=== PATIENT | female | born 1930 | race Caucasian/White ===

== ENCOUNTER → 2019-03-18 | Outpatient (CLI) | payer MEDICARE ==
--- NOTE | 2019-03-18 08:45 | Diagnostic Imaging Report ---
INDICATION: Cough. COMPARISON: None available. FINDINGS: Enlargement of cardiac silhouette is present and likely due to cardiomegaly. No pleural effusion or pneumothorax. Hyperaerated lung volume is noted. No airspace consolidations. Atherosclerotic aorta. IMPRESSION: 1. Cardiac enlargement without acute cardiopulmonary process. Dictated by: Dictated on workstation # [id number]
== END ==
LOC: RAD FS 08:25
PROVIDERS: ATTEND Nurse Practitioner Family
DX: I51.7 Cardiomegaly (principal); R05 Cough
CPT/HCPCS: 71046

== ENCOUNTER → 2019-08-15 | Outpatient (CLI) | payer MEDICARE | LOC: CARD 15:02 | PROVIDERS: ATTEND Nurse Practitioner Family | DX: I08.0 Rheumatic disorders of both mitral and aortic valves (principal); R01.1 Cardiac murmur, unspecified | CPT/HCPCS: 93306 ==

== ENCOUNTER 2020-05-31 13:13 | Observation (INO) | payer MEDICARE ==
[~2020-05-31] VITALS: Ht 160 cm; Wt 41.2 kg
[2020-05-31] VITALS (15 sets, daily range): BP systolic 83–152; BP diastolic 67–100
--- NOTE | 2020-05-31 13:26 | ED GI ---
General Chief Complaint: Abdominal/GI Problems Stated Complaint: INGUINAL HERNIA Source of Information: Patient Exam Limitations: No Limitations History of Present Illness Date Seen by Provider: May 31, 2020 Time Seen by Provider: 13:24 Initial Comments 89-year-old female presents with pain in her right groin. Patient reports she has a known hernia but has never had issues with her before. Patient reports that she has had a lot of issues with that over the last week, Patient reports that this morning shortly after she got up, it really firm and hard and stain bulging out. Patient denies any previous surgeries she does not have any allergies is taking her medications. She has no nausea or vomiting. She last ate a little bit this morning with some coughing and some toast. Patient reports she was sent in her chair leaning back when the pain started. She denies any fevers chills or other systemic complaints Allergies and Home Medications Allergies Coded Allergies: No Known Drug Allergies (Unverified , 05/31/20) Patient Home Medication List Home Medication List Reviewed: Yes Review of Systems Review of Systems Constitutional: No chills, No fever EENTM: No Symptoms Reported Respiratory: No Symptoms Reported; Denies Cough, Denies Shortness of Air Cardiovascular: Denies Chest Pain, Denies Irregular Heart Rate Gastrointestinal: See HPI, Abdominal Pain; Denies Nausea, Denies Vomiting Genitourinary: No Symptoms Reported Musculoskeletal: no symptoms reported Skin: no symptoms reported Psychiatric/Neurological: No Symptoms Reported Endocrine: No Symptoms Reported Past Dkfjmds-Byvnqz-Tccfeb Hx Past Med/Social Hx: Reviewed Nursing Past Med/Soc Hx Patient Social History Recent Foreign Travel: No Contact w/Someone Who Travel: No Physical Exam Vital Signs Vital Signs - First Documented 05/31/20 13:20 Temp 36.4 Pulse 78 Resp 16 B/P (MAP) 169/96 (120) Pulse Ox 97 O2 Delivery Room Air Capillary Refill : Height/Weight/BMI Height: '" Weight: lbs. oz. kg; BMI Method: General Appearance: no apparent distress Respiratory: lungs clear, normal breath sounds Cardiovascular: normal peripheral pulses, regular rate, rhythm Gastrointestinal: No guarding, No rebound; hernia (right inguinal) Extremities: normal range of motion, non-tender Neurologic/Psychiatric: alert, normal mood/affect, oriented x 3 Skin: normal color, warm/dry Lymphatic: no adenopathy Focused Exam Lactate Level 05/31/20 13:39: Lactic Acid Level 1.28 Lactic Acid Level Laboratory Tests Test 05/31/20 13:39 Lactic Acid Level 1.28 MMOL/L (0.50-2.00) Progress/Results/Core Measures Results/Orders Lab Results Laboratory Tests Test 05/31/20 13:28 05/31/20 13:39 Range/Units White Blood Count 10.3 4.3-11.0 10^3/uL Red Blood Count 4.67 4.35-5.85 10^6/uL Hemoglobin 14.3 11.5-16.0 G/DL Hematocrit 42 35-52 % Mean Corpuscular Volume 90 80-99 FL Mean Corpuscular Hemoglobin 31 25-34 PG Mean Corpuscular Hemoglobin Concent 34 32-36 G/DL Red Cell Distribution Width 12.9 10.0-14.5 % Platelet Count 346 130-400 10^3/uL Mean Platelet Volume 9.7 7.4-10.4 FL Neutrophils (%) (Auto) 57 42-75 % Lymphocytes (%) (Auto) 30 12-44 % Monocytes (%) (Auto) 11 0-12 % Eosinophils (%) (Auto) 1 0-10 % Basophils (%) (Auto) 1 0-10 % Neutrophils # (Auto) 5.9 1.8-7.8 X 10^3 Lymphocytes # (Auto) 3.1 1.0-4.0 X 10^3 Monocytes # (Auto) 1.1 H 0.0-1.0 X 10^3 Eosinophils # (Auto) 0.1 0.0-0.3 10^3/uL Basophils # (Auto) 0.1 0.0-0.1 10^3/uL Sodium Level 134 L 135-145 MMOL/L Potassium Level 3.8 3.6-5.0 MMOL/L Chloride Level 99 98-107 MMOL/L Carbon Dioxide Level 22 21-32 MMOL/L Anion Gap 13 5-14 MMOL/L Blood Urea Nitrogen 12 7-18 MG/DL Creatinine 0.51 L 0.60-1.30 MG/DL Estimat Glomerular Filtration Rate > 60 BUN/Creatinine Ratio 24 Glucose Level 110 H 70-105 MG/DL Calcium Level 9.5 8.5-10.1 MG/DL Corrected Calcium 9.5 8.5-10.1 MG/DL Total Bilirubin 0.7 0.1-1.0 MG/DL Aspartate Amino Transf (AST/SGOT) 17 5-34 U/L Alanine Aminotransferase (ALT/SGPT) 7 0-55 U/L Alkaline Phosphatase 95 40-136 U/L Total Protein 7.4 6.4-8.2 GM/DL Albumin 4.0 3.2-4.5 GM/DL Lactic Acid Level 1.28 0.50-2.00 MMOL/L My Orders Orders - DON LEIVA DO Cbc With Automated Diff (05/31/20 13:27) Comprehensive Metabolic Panel (05/31/20 13:27) Lactic Acid Analyzer (05/31/20 13:27) Fentanyl Injection (Sublimaze Injection (05/31/20 13:27) Ondansetron Injection (Zofran Injectio (05/31/20 13:30) Ed Iv/Invasive Line Start (05/31/20 13:27) Medications Given in ED Current Medications Medications Dose Ordered Sig/Esdras Route Start Time Stop Time Status Last Admin Dose Admin Ondansetron HCl 4 mg ONCE ONCE IVP 05/31/20 13:30 05/31/20 13:31 DC 05/31/20 13:33 4 MG Vital Signs/I&O 05/31/20 13:20 Temp 36.4 Pulse 78 Resp 16 B/P (MAP) 169/96 (120) Pulse Ox 97 O2 Delivery Room Air Progress Progress Note : Time: 13:47 Progress Note Attempted hernia reduction following 50 M CDs of fentanyl. The hernia with not reduced instead moved below the groin into the upper part of the right leg. It appears to be in possible incarcerated femoral hernia. Called and discussed with Dr. Tillman who accepted patient. Patient be transferred to [facility] via EMS for possible surgery. Departure Communication (Admissions) Time/Spoke to Admitting Phy: 13:45 Impression Primary Impression: Inguinal hernia, right Disposition: ADMITTED INPATIENT Condition: Stable Admissions Decision to Admit Reason: Admit from ER (General) Decision to Admit/Date: May 31, 2020 Time/Decision to Admit Time: 13:45 Departure-Patient Inst. Referrals: MYRTLE YOUNG MD (PCP/Family) Primary Care Physician DON LEIVA DO May 31, 2020 13:26
[2020-05-31] MEDS ORDERED: fentaNYL INJECTION 100 MCG/2 ML AMP IVP STA (13:27)
[2020-05-31] MEDS ORDERED: ONDANSETRON 4 MG/2 ML (SDV) Z0FRAN IVP ONE (13:30)
[2020-05-31 13:34] LABS: WHITE BLOOD COUNT 10.3 10^3/uL (4.3-11.0)
[2020-05-31 13:35] LABS: BASOPHILS # (AUTO) 0.1 10^3/uL (0.0-0.1); BASOPHILS % (AUTO) 1 % (0-10); EOSINOPHILS # (AUTO) 0.1 10^3/uL (0.0-0.3); EOSINOPHILS % (AUTO) 1 % (0-10); HEMATOCRIT 42 % (35-52); HEMOGLOBIN 14.3 G/DL (11.5-16.0); LYMPHOCYTES # (AUTO) 3.1 X 10^3 (1.0-4.0); LYMPHOCYTES % (AUTO) 30 % (12-44); MEAN CORPUSCULAR HEMOGLOBIN 31 PG (25-34); MEAN CORPUSCULAR HGB CONC 34 G/DL (32-36); MEAN CORPUSCULAR VOLUME 90 FL (80-99); MEAN PLATELET VOLUME 9.7 FL (7.4-10.4); MONOCYTES # (AUTO) 1.1 X 10^3 (0.0-1.0); MONOCYTES % (AUTO) 11 % (0-12); NEUTROPHILS # (AUTO) 5.9 X 10^3 (1.8-7.8); NEUTROPHILS % (AUTO) 57 % (42-75); PLATELET COUNT 346 10^3/uL (130-400)
[2020-05-31 13:53] LABS: ALANINE AMINOTRANSFERASE 7 U/L (0-55); ALKALINE PHOSPHATASE 95 U/L (40-136); BILIRUBIN,TOTAL 0.7 MG/DL (0.1-1.0); BUN/CREATININE RATIO 24; CALCIUM 9.5 MG/DL (8.5-10.1); CARBON DIOXIDE 22 MMOL/L (21-32); CHLORIDE 99 MMOL/L (98-107); CREATININE SERUM 0.51 MG/DL (0.60-1.30); GFR ESTIMATED > 60; GLUCOSE 110 MG/DL (70-105); POTASSIUM 3.8 MMOL/L (3.6-5.0); SODIUM 134 MMOL/L (135-145); TOTAL PROTEIN 7.4 GM/DL (6.4-8.2)
[2020-05-31] MEDS ORDERED: NS IV 1000 ML 1,000 ML ONE (13:59)
[2020-05-31] MEDS ORDERED: NS IV 1000 ML 1,000 ML IV SCH ×2 (14:02→16:30)
--- NOTE | 2020-05-31 15:55 | NUR ---
CATALINA QUIROGA admitted to room 413-1, with an admitting diagnosis of Inguinal Hernia, on 05/31/20 from [facility] via [facility] , accompanied by FRIEND.CATALINA QUIROGA introduced to surroundings, call light, bed controls, phone, TV, temperature control, lights, meal times, smoking policy, visitor policy, side rail policy, bathrooms and showers. Patient Rights given to patient in the handbook. CATALINA QUIROGA verbalizes understanding that [facility] is not responsible for the loss or damage to any personal effects or valuables that are kept in the patients posession during their hospitalization. The following Patient Care Plans were discussed with the PT. Discharge Planning, PAIN, FL VOL DEF, POT FOR FALL, AND HIGH RISK INJURY. CATALINA QUIROGA verbalizes understanding of Interdisciplinary Patient Education. Patient and/or family were informed about the Rapid Response Team and its purpose. CAME TO FLOOR WITH SL IN R FA FROM ER [facility], REPORT WAS CALLED TO THIS RN FROM [facility]Y AT 1421 -- NOTE THT PT CAME PER [facility].
[2020-05-31] MEDS: NS IV 1000 ML 1,000 ML IV SCH ×2 (16:27→21:53)
[2020-05-31] MEDS ORDERED: CATHETER FLUSH 10 ML SYR IV PRN (16:30)
[2020-05-31] MEDS ORDERED: fentaNYL INJECTION 100 MCG/2 ML AMP IV PRN (16:30)
--- NOTE | 2020-05-31 16:56 | History & Physical-Surgical ---
History of Present Illness History of Present Illness Reason for visit/HPI Surgery asked to admit regarding incarcerated Femoral Hernia. HPI per ED: 89-year-old female presents with pain in her right groin. Patient reports she has a known hernia but has never had issues with her before. Patient reports that she has had a lot of issues with that over the last week, Patient reports that this morning shortly after she got up, it really firm and hard and stain bulging out. Patient denies any previous surgeries she does not have any allergies is taking her medications. She has no nausea or vomiting. She last ate a little bit this morning with some coughing and some toast. Patient reports she was sent in her chair leaning back when the pain started. She denies any fevers chills or other systemic complaints When I spoke to pt she complained of bulge and pain in right inguinal region. It started sometime around noon and she rated it 6 out of 10, dull constant with occasional sharp shooting pains. She states it has been "popping out" for 4-5 years, but usually goes back in. It usually occurs when she is straining, today it happened while she was making her bed. Nothing has made it better, pushing on it makes pain worse. Date of Admission May 31, 2020 at 15:51 Time Seen by a Provider: 16:31 I consulted on this patient on 05/31/20 16:51 Attending Physician Kali Tillman DO Admitting Physician Juanita Dash MD Consult Allergies and Home Medications Allergies Coded Allergies: No Known Drug Allergies (Unverified , 05/31/20) Patient Home Medication List Home Medication List Reviewed: Yes Past Dgdwsdu-Iiwmvm-Wldyak Hx Patient Social History Alcohol Use: Denies Use Recreational Drug Use: No Smoking Status: Never a Smoker 2nd Hand Smoke Exposure: No Recent Foreign Travel: No Contact w/Someone Who Travel: No Recent Infectious Disease Expo: No Recent Hopitalizations: No Seasonal Allergies Seasonal Allergies: No Surgeries History of Surgeries: Yes Surgeries: Gallbladder (open) Respiratory History of Respiratory Disorde: No Cardiovascular History of Cardiac Disorders: Yes Cardiac Disorders: Hypertension Neurological History of Neurological Disord: No Genitourinary History of Genitourinary Disor: No Gastrointestinal History of Gastrointestinal Di: Yes (Inguinal hernia) Musculoskeletal History of Musculoskeletal Dis: No Endocrine History of Endocrine Disorders: No Cancer History of Cancer: No Psychosocial History of Psychiatric Problem: No Integumentary History of Skin or Integumenta: No Blood Transfusions History of Blood Disorders: No Family Medical History Significant Family History: Cancer (Breast cancer - Sister), Other Conditions/Hx (younger sibling had polio, she denied any cardiac hx in her family) Review of Systems Constitutional: No chills, No diaphoresis, No malaise EENTM: hearing loss; No blurred vision, No double vision, No mouth pain, No mouth swelling, No epistaxis Respiratory: No cough, No dyspnea on exertion, No hemoptysis, No short of breath Cardiovascular: No chest pain, No edema Gastrointestinal: abdominal pain (RLQ); No jaundice, No nausea, No vomiting Genitourinary: No dysuria, No frequency, No hematuria Musculoskeletal: joint pain, joint swelling, muscle stiffness, other (osteoporosis) Skin: No change in color, No change in hair/nails Psychiatric/Neurological: Denies Anxiety, Denies Depressed, Denies Seizure, Denies Tremors pt denies any hx of abnormal bleeding or bruising Physical Exam Vital Signs Vital Signs - First Documented 05/31/20 13:20 Temp 36.4 Pulse 78 Resp 16 B/P (MAP) 169/96 (120) Pulse Ox 97 O2 Delivery Room Air Capillary Refill : Less Than 3 Seconds Height, Weight, BMI Height: '" Weight: lbs. oz. kg; 16.00 BMI Method: General Appearance: No Apparent Distress, Thin Eyes: Bilateral Eye PERRL, Bilateral Eye EOMI HEENT: Pharynx Normal, Moist Mucous Membranes; No Scleral Icterus (L) Neck: Supple; No Thyromegaly Respiratory: Chest Non Tender, Lungs Clear, Normal Breath Sounds, No Accessory Muscle Use, No Respiratory Distress Cardiovascular: Regular Rate, Rhythm, No Murmur Gastrointestinal: No No Organomegaly, No No Pulsatile Mass; Soft, Hernia (incarcerated inguinal vs femoral) Rectal: Deferred Back: No CVA Tenderness, No Vertebral Tenderness Extremity: No Calf Tenderness, No Pedal Edema Neurologic/Psychiatric: Alert, Oriented x3, Normal Mood/Affect, 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 Norm as Tested Skin: Normal Color, Warm/Dry Lymphatic: No Adenopathy (neck, axilla or groin) Data Review Labs Laboratory Tests 05/31/20 13:28: White Blood Count 10.3, Red Blood Count 4.67, Hemoglobin 14.3, Hematocrit 42, Mean Corpuscular Volume 90, Mean Corpuscular Hemoglobin 31, Mean Corpuscular Hemoglobin Concent 34, Red Cell Distribution Width 12.9, Platelet Count 346, Mean Platelet Volume 9.7, Neutrophils (%) (Auto) 57, Lymphocytes (%) (Auto) 30, Monocytes (%) (Auto) 11, Eosinophils (%) (Auto) 1, Basophils (%) (Auto) 1, Neutrophils # (Auto) 5.9, Lymphocytes # (Auto) 3.1, Monocytes # (Auto) 1.1H, Eosinophils # (Auto) 0.1, Basophils # (Auto) 0.1, Sodium Level 134L, Potassium Level 3.8, Chloride Level 99, Carbon Dioxide Level 22, Anion Gap 13, Blood Urea Nitrogen 12, Creatinine 0.51L, Estimat Glomerular Filtration Rate > 60, BUN/Creatinine Ratio 24, Glucose Level 110H, Calcium Level 9.5, Corrected Calcium 9.5, Total Bilirubin 0.7, Aspartate Amino Transf (AST/SGOT) 17, Alanine Aminotransferase (ALT/SGPT) 7, Alkaline Phosphatase 95, Total Protein 7.4, Albumin 4.0 05/31/20 13:39: Lactic Acid Level 1.28 Assessment/Plan Assessment/Plan Admission Diagonsis Incarcerated Right Femoral Hernia vs Inguinal HTN Admission Status: Observation Assessment/Plan Incarcerated Right Femoral Hernia vs Inguinal HTN Pt has an incarcerated possible strangulated hernia; unsure whether this is a femoral or inguinal hernia. Pt is NPO, IV fluids running, will get pain meds and anti-emetics as needed. Will get consent for Laparoscopic Herniarraphy with mesh placement - robotic assistance. 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 We discussed other risks and complications; not limited to pain, bleeding, infection, scar, damage to bowel and need for further procedure. All questions answered to their satisfaction. Pt will also get IV ABX just prior to OR. KALI TILLMAN DO May 31, 2020 16:56
[2020-05-31] MEDS ORDERED: BUP/EPI 0.5% 1:200,000 (MARCAINE) 10ML VIAL IJ ONE (17:15)
[2020-05-31] MEDS ORDERED: proPOfol 200 MG/20 ML (DIPRIVAN) VIAL IV ONE (17:22)
[2020-05-31] MEDS ORDERED: fentaNYL INJECTION 100 MCG/2 ML AMP ONE (17:22)
[2020-05-31] MEDS ORDERED: LIDOCAINE PF 2% 5 ML (XYLOCAINE) VIAL ONE (17:22)
[2020-05-31] MEDS ORDERED: SEVOFLURANE (ULTANE) 15 ML INHAL SOLN ONE (17:22)
[2020-05-31] MEDS ORDERED: ONDANSETRON 4 MG/2 ML (SDV) Z0FRAN ONE ×2 (17:26→18:58)
[2020-05-31] MEDS ORDERED: ceFAZolin INJECTION 1,000 MG ONE (17:57)
[2020-05-31] MEDS ORDERED: LACTATED RINGERS 1,000 ML IV PRN (18:45)
[2020-05-31] MEDS ORDERED: BSS 15 ML ONE (18:52)
--- NOTE | 2020-05-31 18:53 | NUR ---
NOTE THAT PT TAKEN DOWN FOR PREOP AT 1741 --
[2020-05-31] MEDS ORDERED: LABETALOL HCL 20 MG/4 ML VIAL ONE (18:54)
--- NOTE | 2020-05-31 19:44 | Progress Note-Post Operative ---
Post-Operative Progess Note Surgeon (s)/Hair Cutter (s) Surgeon NAZANIN HA DO Hair Cutter: Alvarez Pre-Operative Diagnosis Incarcerated Femoral vs Inguinal hernia Post-Operative Diagnosis Strangulated Femoral hernia Diaphragmatic hernia Crepitance Procedure & Operative Findings Date of Procedure 05/31/20 Procedure Performed/Findings INDICATION FOR PROCEDURE: The patient is a 89-year-old female, who has an incarcerated right probable femoral hernia vs possibly inguininal hernia. FINDINGS: The patient had a portion strangulated small intestine and omentum in a femoral hernia, also noted a diaphragmatic hernia. Pictures were taken of both. PROCEDURE NOTE: After informed consent was obtained, the patient was brought to the operating room, placed on the operating table in supine position. She was sterilely prepped and draped in normal fashion. Local lidocaine was used to infiltrate the skin above the umbilicus. I made the incision with #11 blade, carried down through the skin into subcutaneous tissue, then deepened down to subcutaneous tissue with Bovie electrocautery down to fascia. Fascia was incised with Bovie electrocautery, bluntly entered into the abdomen, swept a finger around, placed 0 Vicryl [id number] suture and placed an 11 mm trocar port under direct visualization. Created pneumoperitoneum and then placed 2 more ports in normal fashion using local lidocaine, 11 blade for stab incision and used the 8 mm robotic trocar ports watched them come in. While creating the pneumoperitoneum we heard a sound like a burp and then later in the case the [employer] noticed crepitance in the pt's face and neck into her eyelids as well. At this point, then placed the patient in Trendelenburg and docked the robot, had seen some intestine in the right femoral hernia and able to carefully pull this out. The intestine looked mildly ischemic and let it drop into abdomen and then took pictures of the right femoral hernia. At this point, then made an incision approximately 8 cm away from the right femoral hernia defect in the peritoneum and then carefully came down, came across the paramedian ligament as well as about 12 cm across to be able to create our space and then dissected through the peritoneum pushing this down gently trying to stay in the parietal space and then once medial with the paramedian ligament, went into the parietal space and then dissected down towards the pubic tubercle able to visualize the pubic tubercle and then cut take the peritoneum all the way down, able to see the critical view and be able to get 2 cm across the midline to the left side with dissection and then 2 cm posterior to Johnathon's ligament able to parietalize the groove between Johnathon's and iliac vein. Coming across the round ligament and sweeping everything down. She had a relatively large hernia defect, it took a while to get this completely out. Able to visualize the direct hernia space; there was no hernia. There may have been a small indirect inguinal hernia. Reduced the hernia sac and contents; made sure that the posterior lateral dissection, dissected out about 14 cm and at this point, then placed a medium Bard 3D mesh in. It was just about 14 cm with a wide overlap of the hernia defect. Used a 3-0 Vicryl to then suture at the pubic tubercle as well as another one to hold it superiorly with a 3-0 Vicryl and at this point then elected to close the peritoneal defect with a 2-0 V-Loc suture running from the medial aspect to the lateral aspect tying to itself. Pulled out the very large hernia defect and elected to hold this up and tacked this to the top to hold this out of the way. Took pictures with the mesh and then took a picture with the peritoneum closed and looked very good at the end of the case. At this point then placed a bag into the abdomen and removed the hernia contents; also looked around and saw a diaphragmatic hernia, took a picture. This must be why she had crepitance and swelling into her face and eyes. Next, removed all ports under direct visualization, placed the patient supine and then closed the supraumbilical incision, closing the fascia with 0 Vicryl suture previously placed. Copiously irrigated all incisions and then closed the incision with 4-0 undyed Monocryl. Area was cleaned and dried. Dermabond placed as well as Band-Aids. The patient tolerated the procedure. Sponge, instrument and needle count correct at the end of the case. She was then transferred to ICU in stable condition; will most likely remain intubated over night. Dr. Pino assisted in this case helping to make incisions, close incisions, identify anatomy and hold anatomy out of the way. He also passed suture to me. Anesthesia Type GET Estimated Blood Loss Estimated blood loss (mL): less than 15ml Specimens/Packing Specimens Removed hernia contents NAZANIN HA DO May 31, 2020 19:44
[2020-05-31] MEDS ORDERED: PROPOFOL DRIP (ICU) 100 ML IV ONE (20:06)
--- NOTE | 2020-05-31 20:27 | Diagnostic Imaging Report ---
INDICATION: Postop intubation FINDINGS: An ET tube tip projects over the mid thoracic trachea in good alignment. 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 Since the prior, there has been development of extensive subcutaneous emphysema about the chest bilaterally and extending into the bilateral neck. Underlying COPD as well as the extent of overlying soft tissue gas limits sensitivity for detecting pneumothoraces, no appreciable pleural separation or visualized pneumothorax found. No definite pneumomediastinum or pericardial gas. The visualized upper abdomen shows free air presumed on a postsurgical basis given the provided history. The gas may be dissecting from that site. IMPRESSION: 1. Pneumoperitoneum on a postoperative basis may account for the diffuse chest wall and cervical subcutaneous emphysema as no appreciable pneumothorax found. 2. An ET tube is present in the mid thoracic trachea in good alignment. Dictated by: Dictated on workstation # [id number]
[2020-05-31] MEDS ORDERED: PROPOFOL DRIP (ICU) 100 ML IV SCH (20:30)
[2020-05-31] MEDS ORDERED: fentaNYL INJECTION 1,250 MCG in NORMAL SALINE 250 ML INJ SCH (20:30)
--- NOTE | 2020-05-31 20:55 | NUR ---
Received care and report of pt at this time from Joseline Mooney from recovery. See interventions.
[2020-05-31] MEDS ORDERED: NS (IVPB) 100 ML ONE (21:45)
[2020-05-31] MEDS ORDERED: fentaNYL (OMNICELL DRIP KIT ONLY) 250 MCG/5 ML AMP ONE (21:45)
[2020-06-01] VITALS (16 sets, daily range): BP systolic 93–133; BP diastolic 63–88
[2020-06-01 03:31] LABS: BASOPHILS % (AUTO) 0 % (0-10); EOSINOPHILS % (AUTO) 0 % (0-10); HEMATOCRIT 38 % (35-52); HEMOGLOBIN 12.7 G/DL (11.5-16.0); LYMPHOCYTES # (AUTO) 1.8 X 10^3 (1.0-4.0); LYMPHOCYTES % (AUTO) 9 % (12-44); MEAN CORPUSCULAR HEMOGLOBIN 31 PG (25-34); MEAN CORPUSCULAR HGB CONC 33 G/DL (32-36); MEAN CORPUSCULAR VOLUME 92 FL (80-99); MEAN PLATELET VOLUME 10.3 FL (7.4-10.4); MONOCYTES # (AUTO) 2.1 X 10^3 (0.0-1.0); MONOCYTES % (AUTO) 10 % (0-12); NEUTROPHILS # (AUTO) 16.1 X 10^3 (1.8-7.8); NEUTROPHILS % (AUTO) 81 % (42-75); PLATELET COUNT 254 10^3/uL (130-400)
[2020-06-01 03:33] LABS: ABG BASE EXCESS -3.5 MMOL/L (-2.5-2.5); ABG OXYGEN SATURATION 98 % (94-100); ABG PCO2 38 MMHG (35-45); ABG PH 7.36 (7.37-7.43); ABG PO2 98 MMHG (79-93); ABG TCO2 22.3 MMOL/L (21.0-31.0); ALLENS TEST POSITIVE
[2020-06-01 03:34] LABS: INSPIRED O2 21; PATIENT TEMP 36.9; VENTILATOR YES
[2020-06-01 03:47] LABS: CHLORIDE 105 MMOL/L (98-107); POTASSIUM 3.9 MMOL/L (3.6-5.0); SODIUM 135 MMOL/L (135-145)
[2020-06-01 03:48] LABS: CALCIUM 8.4 MG/DL (8.5-10.1)
[2020-06-01 03:49] LABS: GLUCOSE 158 MG/DL (70-105)
[2020-06-01 03:50] LABS: CARBON DIOXIDE 18 MMOL/L (21-32)
[2020-06-01 03:53] LABS: CREATININE SERUM 0.69 MG/DL (0.60-1.30); GFR ESTIMATED > 60
[2020-06-01 03:54] LABS: BUN/CREATININE RATIO 19
[2020-06-01 03:55] LABS: MAGNESIUM 1.9 MG/DL (1.6-2.4)
[2020-06-01 04:39] LABS: ANISOCYTOSIS SLIGHT; BAND NEUTROPHILS 12 %; LYMPHOCYTES % (MANUAL) 7 %; MONOCYTES % (MANUAL) 8 %; NEUTROPHILS % (MANUAL) 73 %; POIKILOCYTOSIS MODERATE
--- NOTE | 2020-06-01 07:54 | NUR ---
0740 PT SITTING UP IN BED FOLLOWING ALL COMMANDS, DR HA NOTIFIED AND ORDERS RECEIVED TO EXTUBATE PT. RT NOTIFIED. PT EXTUBATED AT 0747 AND RESTRAINTS REMOVED. PT PLACED ON 02 AT 2 LITERS PER NC. PT REPOSITIONED IN BED PER COMFORT, FRESH ICE PACK PLACED TO ABDOMEN, PT DENIES ANY NEEDS AND NO C/O OF PAIN NOTED, CALL LIGHT WITHIN REACH WILL CONTINUE TO MONITOR.
--- NOTE | 2020-06-01 07:56 | Physical Therapy Progress Note ---
Therapy Progress Note Patient currently intubated and sedated. PT will continue to monitor patient status and initiate when medically stable and able to actively participate with skilled therapy. MISA ALDRIDGE PT Jun 01, 2020 07:56
--- NOTE | 2020-06-01 08:00 | Occ Therapy Progress Note ---
Therapy Progress Note OT order received, chart reviewed. Pt. currently sedated and on ventilator support. Will continue to monitor. [id number] KRYSTLE BEARDEN OT Jun 01, 2020 08:00
--- NOTE | 2020-06-01 08:44 | Diagnostic Imaging Report ---
INDICATION: Intubation. Comparison is made with prior examination from 05/31/2020. FINDINGS: There is cardiomegaly. There is ectasia of the thoracic aorta. Lungs are clear. There is no pleural effusion or pneumothorax. Endotracheal tube remains in place. Subcutaneous emphysema about the left chest wall bilaterally though this is improved. IMPRESSION: Interval improvement in the subcutaneous emphysema. Cardiomegaly and ectasia of the thoracic aorta No other acute cardiopulmonary abnormality. Dictated by: Dictated on workstation # [id number]
--- NOTE | 2020-06-01 08:53 | Progress Note - Surgery ---
ROYCE AJ MED STUDENT 06/01/20 0853: Subjective Date Seen by a Provider: Jun 01, 2020 Time Seen by a Provider: 08:30 Subjective/Events-last exam Pt was lying quietly in bed. pt asked where she was and where her friend Joseline was. pt denied any pain. pt denied any abdominal tenderness. pt kept asking where she was. pt kept saying that she needed something to drink. pt was grateful for the hernia repair, she expressed that yesterday she knew something was wrong when she had bent down and had pain. Review of Systems General: No Chills; Fatigue Pulmonary: No Dyspnea, No Cough Cardiovascular: No: Chest Pain, Palpitations Gastrointestinal: No: Nausea, Vomiting, Diarrhea, Constipation Musculoskeletal: No: neck pain, leg pain Focused Exam Lactate Level 05/31/20 13:39: Lactic Acid Level 1.28 Respiratory: Chest Non Tender, Lungs Clear, Normal Breath Sounds, No Accessory Muscle Use, No Respiratory Distress Cardiovascular: Regular Rate, Rhythm, No Murmur Peripheral Pulses: 2+ Carotid (R), 2+ Carotid (L); 1+ Dorsalis Pedis (R), 1+ Left Dors-Pedis (L), 1+ Radial Pulses (R), 1+ Radial Pulses (L) Skin: normal color Objective Exam Vital Signs Date Time Temp Pulse Resp B/P (MAP) Pulse Ox O2 Delivery O2 Flow Rate FiO2 06/01/20 07:20 36.6 06/01/20 07:00 95 15 133/80 (97) 93 Nasal Cannula 2.00 06/01/20 06:45 68 14 97 21 06/01/20 06:00 67 14 95/65 (75) 97 Mechanical Ventilator 21.00 06/01/20 05:00 67 99/63 (75) 97 Mechanical Ventilator 21.00 06/01/20 04:00 69 18 100/68 (79) 96 Mechanical Ventilator 21.00 06/01/20 03:37 36.9 06/01/20 03:00 76 13 111/78 (89) 100 Mechanical Ventilator 21.00 06/01/20 02:26 68 14 97 21 06/01/20 02:00 69 13 103/65 (78) 97 Mechanical Ventilator 21.00 06/01/20 01:06 68 15 97 21 06/01/20 01:00 76 14 126/72 (90) 97 Mechanical Ventilator 21.00 06/01/20 01:00 76 06/01/20 00:35 114 21 96 21 06/01/20 00:00 84 25 133/83 (100) 97 Mechanical Ventilator 21.00 05/31/20 23:17 36.1 Mechanical Ventilator 21.00 05/31/20 23:00 77 14 126/100 (109) 97 Mechanical Ventilator 21.00 05/31/20 22:00 75 16 136/89 (105) 98 Mechanical Ventilator 21.00 05/31/20 21:45 75 16 152/85 (107) 98 Mechanical Ventilator 21.00 05/31/20 21:30 80 24 140/89 (106) 98 Mechanical Ventilator 21.00 05/31/20 21:20 80 13 135/90 (105) 99 Mechanical Ventilator 21.00 05/31/20 21:11 75 18 99 Mechanical Ventilator 21.00 05/31/20 21:10 75 18 117/83 (94) 99 Mechanical Ventilator 30.00 05/31/20 21:00 84 22 94/70 (78) 100 Mechanical Ventilator 30.00 05/31/20 21:00 84 05/31/20 21:00 Mechanical Ventilator 21 05/31/20 21:00 23 94/70 (78) 99 Mechanical Ventilator 40 05/31/20 20:55 99 Mechanical Ventilator 30.00 05/31/20 20:55 36.2 05/31/20 20:50 Mechanical Ventilator 40 05/31/20 20:50 36.2 24 106/82 (90) 99 Mechanical Ventilator 40 05/31/20 20:40 Mechanical Ventilator 40 05/31/20 20:40 24 106/82 (90) 100 Mechanical Ventilator 40 05/31/20 20:30 26 95/71 (79) 100 Mechanical Ventilator 40 05/31/20 20:25 Mechanical Ventilator 40 05/31/20 20:20 21 83/67 (72) 98 Mechanical Ventilator 40 05/31/20 20:10 Mechanical Ventilator 40 05/31/20 20:10 21 112/74 (87) 96 Mechanical Ventilator 40 05/31/20 20:00 32 139/90 (106) 99 Mechanical Ventilator 40 05/31/20 19:55 Mechanical Ventilator 40 05/31/20 19:55 36.2 12 138/92 (107) 99 Mechanical Ventilator 40 05/31/20 16:52 36.6 74 20 149/71 94 Room Air 05/31/20 16:00 94 Room Air 05/31/20 14:46 36.2 84 16 157/76 98 05/31/20 13:20 36.4 78 16 169/96 (120) 97 Room Air I & O 06/01/20 07:00 Intake Total 1010 ml Output Total 475 ml Balance 535 ml Capillary Refill : Less Than 3 SecondsLess Than 3 Seconds General Appearance: No Apparent Distress, Thin HEENT: Moist Mucous Membranes; No Scleral Icterus (L), No Scleral Icterus (R) Neck: Non Tender, Supple; No Lymphadenopathy (L), No Lymphadenopathy (R) Respiratory: Chest Non Tender, Lungs Clear, Normal Breath Sounds, No Accessory Muscle Use, No Respiratory Distress Cardiovascular: Regular Rate, Rhythm, No Murmur Peripheral Pulses: 2+ Carotid (R), 2+ Carotid (L); 1+ Dorsalis Pedis (R), 1+ Left Dors-Pedis (L), 1+ Radial Pulses (R), 1+ Radial Pulses (L) Gastrointestinal: non tender, soft Extremity: Normal Inspection, Non Tender Neurologic/Psychiatric: Alert, Normal Mood/Affect, addictions recovery specialist II-XII Norm as Tested, Disoriented Skin: Normal Color, Warm/Dry Lymphatic: No Adenopathy (neck, axilla or groin); No Inguinal Node Tender (L), No Inguinal Node Tender (R) Results Lab Laboratory Tests 05/31/20 13:28: White Blood Count 10.3, Red Blood Count 4.67, Hemoglobin 14.3, Hematocrit 42, Mean Corpuscular Volume 90, Mean Corpuscular Hemoglobin 31, Mean Corpuscular Hemoglobin Concent 34, Red Cell Distribution Width 12.9, Platelet Count 346, Mean Platelet Volume 9.7, Neutrophils (%) (Auto) 57, Lymphocytes (%) (Auto) 30, Monocytes (%) (Auto) 11, Eosinophils (%) (Auto) 1, Basophils (%) (Auto) 1, Neutrophils # (Auto) 5.9, Lymphocytes # (Auto) 3.1, Monocytes # (Auto) 1.1H, Eosinophils # (Auto) 0.1, Basophils # (Auto) 0.1, Sodium Level 134L, Potassium Level 3.8, Chloride Level 99, Carbon Dioxide Level 22, Anion Gap 13, Blood Urea Nitrogen 12, Creatinine 0.51L, Estimat Glomerular Filtration Rate > 60, BUN/Creatinine Ratio 24, Glucose Level 110H, Calcium Level 9.5, Corrected Calcium 9.5, Total Bilirubin 0.7, Aspartate Amino Transf (AST/SGOT) 17, Alanine Aminotransferase (ALT/SGPT) 7, Alkaline Phosphatase 95, Total Protein 7.4, Albumin 4.0 05/31/20 13:39: Lactic Acid Level 1.28 06/01/20 02:45: White Blood Count 20.0H, Red Blood Count 4.17L, Hemoglobin 12.7, Hematocrit 38, Mean Corpuscular Volume 92, Mean Corpuscular Hemoglobin 31, Mean Corpuscular Hemoglobin Concent 33, Red Cell Distribution Width 12.9, Platelet Count 254, Mean Platelet Volume 10.3, Neutrophils (%) (Auto) 81H, Lymphocytes (%) (Auto) 9L , Monocytes (%) (Auto) 10, Eosinophils (%) (Auto) 0, Basophils (%) (Auto) 0, Neutrophils # (Auto) 16.1H, Lymphocytes # (Auto) 1.8, Monocytes # (Auto) 2.1H, Eosinophils # (Auto) 0.0, Basophils # (Auto) 0.0, Sodium Level 135, Potassium Level 3.9, Chloride Level 105, Carbon Dioxide Level 18L, Anion Gap 12, Blood Urea Nitrogen 13, Creatinine 0.69, Estimat Glomerular Filtration Rate > 60, BUN/Creatinine Ratio 19, Glucose Level 158H, Calcium Level 8.4L, Neutrophils % (Manual) 73, Lymphocytes % (Manual) 7, Monocytes % (Manual) 8, Band Neutrophils 12, Poikilocytosis MODERATE, Anisocytosis SLIGHT, Magnesium Level 1.9 06/01/20 03:24: Blood Gas Puncture Site LEFT RADIAL, Blood Gas Patient Temperature 36.9, Arterial Blood pH 7.36L, Arterial Blood Partial Pressure CO2 38, Arterial Blood Partial Pressure O2 98H, Arterial Blood HCO3 21L, Arterial Blood Total CO2 22.3, Arterial Blood Oxygen Saturation 98, Arterial Blood Base Excess -3.5L, Cecil Test POSITIVE, Blood Gas Ventilator Setting YES, Blood Gas Inspired Oxygen 21 Assessment/Plan Assessment/Plan Assessment/Plan Assessment Incarcerated R femoral hernia Plan Clinical Quality Measures DVT/VTE Risk/Contraindication: Risk Factor Score Per Nursin RFS Level Per Nursing on Admit: 2=Moderate NAZANIN TILLMAN DO 06/01/20 1208: Subjective Time Seen by a Provider: 11:47 Subjective/Events-last exam Pt seen and examined, eating a soft diet. She denies any pain and is asking to go home. Review of Systems General: No Chills; Fatigue Pulmonary: No Dyspnea, No Cough Cardiovascular: No: Chest Pain, Palpitations Gastrointestinal: No: Nausea, Vomiting, Abdominal Pain Objective Exam General Appearance: No Apparent Distress, Thin HEENT: Moist Mucous Membranes Respiratory: Lungs Clear, Normal Breath Sounds, No Accessory Muscle Use, No Respiratory Distress Cardiovascular: Regular Rate, Rhythm, No Murmur Gastrointestinal: non tender, soft, other (incisions are c/d/I=i) Assessment/Plan Assessment/Plan Assessment/Plan S/P Lap Femoral Herniarraphy with Robotic assistance D/C IV and D/C home Supervisory-Addendum Brief Verification & Attestation Participated in pt care: history, MDM, physical Personally performed: exam, history, MDM Care discussed with: Medical Student Procedures: n/a Verification and Attestation of Medical Student E/M Service A medical student performed and documented this service. I then reviewed and verified all information documented by the medical student and made modifications to such information, when appropriate. I personally performed a physical exam, medical decision making and then discussed any differences between the notes and made revisions as necessary to create one note. Nazanin Tillamn , 06/01/20 , 12:07 ROYCE AJ MED STUDENT Jun 01, 2020 08:53 NAZANIN TILLMAN DO Jun 01, 2020 12:08
--- NOTE | 2020-06-01 10:20 | Physical Therapy Evaluation ---
PT Evaluation-General Medical Diagnosis Admission Date May 31, 2020 at 15:51 Medical Diagnosis: incarcerated hernia Onset Date: May 31, 2020 Therapy Diagnosis Therapy Diagnosis: generalized weakness/debility Precautions Precautions/Isolations: Fall Prevention, Standard Precautions Referral Physician: einjayro Reason for Referral: Evaluation/Treatment Medical History Pertinent Medical History: HTN Current History ER secondary to right groin pain/s/p hernia repair Reviewed History: Yes Social History Home: Single Level Current Living Status: Other Family Prior Prior Level of Function SCALE: Activities may be completed with or without assistive devices. 6-Aeddpvrtno-ysyybqc completes the activity by him/herself with no assistance from a helper. 5-Set-up or Clean-up Assistance-helper sets up or cleans up; patient completes activity. Nye assists only prior to or following the activity. 4-Supervision or Touching Assistance-helper provides verbal cues and/or touching/steadying and/or contact guard assistance as patient completes activity. Assistance may be provided throughout the activity or intermittently. 3-Partial/Moderate Assistance-helper does LESS THAN HALF the effort. Nye lifts, holds or supports trunk or limbs, but provides less than half the effort. 2-Substantial/Maximal Assistance-helper does MORE THAN HALF the effort. Nye lifts or holds trunk or limbs and provides more than half the effort. 0-Qixyhpnec-sfotxz does ALL the effort. Patient does none of the effort to complete the activity. Or, the assistance of 2 or more helpers is required for the patient to complete the activity. If activity was not attempted, code reason: 7-Patient Refused. 9-Not Applicable-not attempted and the patient did not perform the activity before the current illness, exacerbation or injury. 10-Not Attempted due to Environmental Limitations-(lack of equipment, weather restraints, etc.). 88-Not Attempted due to Medical Conditions or Safety Concerns. Bed Mobility: 5 Transfers (B,C,W/C): 5 Gait: 5 Indoor Mobility (Ambulation): Independent Prior Devices Use: Walker PT Evaluation-Current Subjective Patient is very confused and tearful due to just extubated. Pain Numeric Pain Scale: 0-No Pain Location: No Pain Reported Objective Patient Orientation: Confused ROM/Strength ROM Lower Extremities bilateral LE WFL Strength Lower Extremities 3-/5 grossly bilateral LE Integumentary/Posture Integumentary refer to nursing notes Bladder Incontinence: Reilly Cath Posture WFL Neuromuscular (Tone, Coordination, Reflexes) diminished coordination due to medication per RN Sensory Vision: Functional Hearing: Impaired Sensation Right Lower Extremit: Intact Sensation Left Lower Extremity: Intact Transfers Roll Left to Right (QC): 2 Lying to Sitting/Side of Bed(Q: 2 Sit to Stand (QC): 2 Chair/Lia-sx-Cyemc Xfer(QC): 2 Gait Does the Patient Walk?: No and Walking Goal IS indicated Mode of Locomotion: Walk Anticipated Mode of Locomotion: Walk Gait Assistive Device: FWW Balance Sitting Static: Fair Sitting Dynamic: Fair Standing Static: Fair Standing Dynamic: Fair Assessment/Needs 89 y.o. female, will benefit from skilled PT to address functional strength and mobility to improve current LOF to safely return to home or care facility at maximum LOF. Rehab Potential: Fair PT Jail Goals Compensator Worker Goals PT Jail Goals Time Frame: Jun 12, 2020 Roll Left & Right (QC): 5 Sit to Lying (QC): 5 Lying-Sitting on Side/Bed(QC): 5 Sit to Stand (QC): 5 Chair/Mey-pm-Rjqox Xfer(QC): 5 Toilet Transfer (QC): 5 Does the Patient Walk: Yes Walk 10 feet (QC): 5 Walk 50ft with 2 Turns (QC): 5 Walk 150 ft (QC): 5 PT Plan Problem List Problem List: Activity Tolerance, Functional Strength, Safety, Balance, Gait, Transfer, Bed Mobility Treatment/Plan Treatment Plan: Continue Plan of Care Treatment Plan: Bed Mobility, Education, Functional Activity Tony, Functional Strength, Gait, Safety, Therapeutic Exercise, Transfers Treatment Duration: Jun 12, 2020 Frequency: 6 times per week Estimated Hrs Per Day: .25 hour per day Patient and/or Family Agrees t: Yes (850) Time/GCodes Time In: 850 Time Out: 906 Total Billed Treatment Time: 16 Total Billed Treatment 1 visit EVMod 16 min MISA ALDRIDGE PT Jun 01, 2020 10:20
--- NOTE | 2020-06-01 10:37 | NUR ---
PT REQUESTING SOMETHING TO EAT, DR HA NOTIFIED AND NEW ORDERS RECEIVED FOR LORENE, D/C VEGA AND START IS. AND PT TO BE TRANSFERRED TO [facility]. ORDERS ENTERED, VEGA D/C AND RT NOTIFIED. PT SITTING UP IN CHAIR SISTER AT BEDSIDE, NO C/O OF PAIN, NO NEEDS NOTED WILL CONTINUE TO MONITOR.
--- NOTE | 2020-06-01 12:09 | Discharge Inst-Surgical ---
Discharge Inst-Surgical Depart Medication/Instructions New, Converted or Re-Newed RX: Other (Pt does not need pain meds) Patient Instructions Follow up Appt: Make appointment for 1 week. [phone] Instructions: No lifting greater than 20 pounds. No strenuous activity. May shower in 24 hours, no tub bath or soaking. Use incentive spirometer at home as directed. No Smoking Skin/Wound Care: May remove bandages in am. You need to leave the Dermabond on incision it will fall off on it's own. Symptoms to Report: Appetite Changes, Extremity Discoloration, Numbness/Tingling, Swelling Increased, Bleeding Excessive, Eyesight Changes, Pain Increased, Urine Color Change, Constipation(Persistent), Fever over 101 degree F, Pain/Pressure in chest, Urinating Difficulty, Cough Up/Vomit Blood, Heart Beat Irreg/Pounding, Pain/Pressure in jaw, Cramps in feet or legs, Lightheadedness, Pain/Pressure in shoulder, Diarrhea(Persistent), Memory Changes Suddenly, Questions/Concerns, Weight gain consecutive days, Dizziness/Fainting, Nausea/Vomiting, Shortness of Breath, Weight gain over 2 pounds If questions or concerns contact your physician Or seek help at emergency department. Activity Activity as Tolerated: Yes Activity Instructions: Avoid Stress to Incision Driving Instructions: No Driving/Refer to Dr. Rudolph Discharge Diet: No Restrictions Diet After 24 Hours: Clear Liquid if Nauseous If Any Problems/Questions/Issu: Contact Your Physician, Go to Emergency Room Skin/Wound Care Infection Signs and Symptoms: Increased Redness, Foul Odor of Wound, Increased Drainage, Skin Itchy or Has a Rash, Increased Swelling, Temperature Above 101 F Bathing Instructions: Shower Stitches/[place]/Dermabond Dis: Dermond NAZANIN HA DO Jun 01, 2020 12:09
--- NOTE | 2020-06-01 12:10 | Anesthesia-General Post-Op ---
General Patient Condition Mental Status/LOC: Same as Preop Cardiovascular: Satisfactory Nausea/Vomiting: Absent Respiratory: Satisfactory Pain: Controlled Complications: Absent Post Op Complications Complications None Follow Up Care/Instructions Patient Instructions None needed. Anesthesia/Patient Condition Patient Condition Patient is doing well, no complaints, stable vital signs, no apparent adverse anesthesia problems. No complications reported per nursing. ERIC JONES CRNA Jun 01, 2020 12:10
--- NOTE | 2020-06-01 13:09 | NUR ---
Received dietary consult regarding pt's vent status. Note pt has been extubated at this time. Will continue to follow and reassess as pt needs, intake, and status change. Peng Cash, MS, RD, LD
--- NOTE | 2020-06-01 13:30 | NUR ---
CATALINA QUIROGA demonstrates understanding of discharge instructions and accurately returns instructions upon questioning. Copy of Post-Discharge Instructions given to . CATALINA QUIROGA is able to manage continuing needs after discharge with assistance of family and friends. Patients belongings returned to patient and family. Skin dry and intact; no breakdown noted, pt had lap sites to abdomen with Dermabond intact. Patient discharged from [facility]- on 06/01/20 at 1330. CATALINA QUIROGA left floor via wheelchair, accompanied by this RN.
== END 2020-06-01 13:30 | disposition home or self-care (01) ==
LOC: EDUNIT# 13:13 → ER FS 13:16 → 4TH 15:51 → UNDOADMOB 15:51 → SDC 15:51 → 4TH 15:51 → SDC 19:54 → 4TH 19:55 → ICU 21:00 → 4TH 21:00 → UNDODISOB 06-01 13:30
PROVIDERS: ADMIT Surgery; ATTEND Surgery
DX: K41.00 Bilateral femoral hernia, with obstruction, without gangrene, not specified as recurrent (principal); K44.0 Diaphragmatic hernia with obstruction, without gangrene; K40.90 Unilateral inguinal hernia, without obstruction or gangrene, not specified as recurrent; I10 Essential (primary) hypertension; F17.210 Nicotine dependence, cigarettes, uncomplicated; Z79.899 Other long term (current) drug therapy
CPT/HCPCS: 36415; 49553; 71045 ×2; 80048; 80053; 82805; 83605; 83735; 85007; 85025; 85027; 87081; 88302; 94002; 94003; 94799; 96374; 96375; 97162; 99284; C1781; G0378

== ENCOUNTER → 2020-06-28 | Outpatient (CLI) | payer MEDICARE ==
[2020-06-28 12:04] LABS: HEMATOCRIT 41 % (35-52); HEMOGLOBIN 13.5 G/DL (11.5-16.0); MEAN CORPUSCULAR HEMOGLOBIN 31 PG (25-34); MEAN CORPUSCULAR HGB CONC 33 G/DL (32-36); MEAN CORPUSCULAR VOLUME 94 FL (80-99); PLATELET COUNT 295 10^3/uL (130-400); WHITE BLOOD COUNT 8.9 10^3/uL (4.3-11.0)
[2020-06-28 12:05] LABS: BASOPHILS # (AUTO) 0.1 10^3/uL (0.0-0.1); BASOPHILS % (AUTO) 1 % (0-10); EOSINOPHILS # (AUTO) 0.1 10^3/uL (0.0-0.3); EOSINOPHILS % (AUTO) 1 % (0-10); LYMPHOCYTES # (AUTO) 3.2 X 10^3 (1.0-4.0); LYMPHOCYTES % (AUTO) 35 % (12-44); MONOCYTES # (AUTO) 0.9 X 10^3 (0.0-1.0); MONOCYTES % (AUTO) 11 % (0-12); NEUTROPHILS # (AUTO) 4.6 X 10^3 (1.8-7.8); NEUTROPHILS % (AUTO) 51 % (42-75)
[2020-06-28 12:46] LABS: ALANINE AMINOTRANSFERASE 6 U/L (0-55); ALBUMIN 4.1 GM/DL (3.2-4.5); ALKALINE PHOSPHATASE 80 U/L (40-136); BILIRUBIN,TOTAL 0.9 MG/DL (0.1-1.0); BUN/CREATININE RATIO 17; CALCIUM 9.6 MG/DL (8.5-10.1); CARBON DIOXIDE 22 MMOL/L (21-32); CHLORIDE 100 MMOL/L (98-107); CREATININE SERUM 0.59 MG/DL (0.60-1.30); GFR ESTIMATED > 60; GLUCOSE 86 MG/DL (70-105); SODIUM 137 MMOL/L (135-145); TOTAL PROTEIN 7.5 GM/DL (6.4-8.2)
== END ==
LOC: LAB FS 11:22
PROVIDERS: ATTEND Family Medicine
DX: I10 Essential (primary) hypertension (principal); R63.4 Abnormal weight loss
CPT/HCPCS: 36415; 80053; 82607; 85025

== ENCOUNTER 2020-07-14 10:41 | Emergency (ER) | payer MEDICARE ==
[2020-07-14] MEDS ORDERED: fentaNYL INJECTION 100 MCG/2 ML AMP IVP STA (10:45)
--- NOTE | 2020-07-14 10:45 | ED Upper Extremity ---
General Stated Complaint: FALL Source: patient Exam Limitations: no limitations History of Present Illness Date Seen by Provider: Jul 14, 2020 Time Seen by Provider: 10:44 Initial Comments 10-year-old female presents with right shoulder pain and right upper arm skin tear. Patient reports that she tripped and fell. This happened just prior to coming to the ER. She did not hit her head or lose consciousness. She has no other injuries. Patient has significant pain in her right shoulder right upper arm. Recent range of motion. Patient denies in her head, any chest pain, shortness of breath, fevers chills nausea vomiting. Allergies and Home Medications Allergies Coded Allergies: No Known Drug Allergies (Unverified , 05/31/20) Home Medications Hydrocodone/Acetaminophen 1 Each Tablet, 0.5 EACH PO Q6H PRN for PAIN- BREAKTHROUGH Prescribed by: DON LEIVA on 07/14/20 1311 Patient Home Medication List Home Medication List Reviewed: Yes Review of Systems Constitutional: No chills, No fever EENTM: no symptoms reported Respiratory: no symptoms reported Cardiovascular: no symptoms reported Gastrointestinal: no symptoms reported Genitourinary: no symptoms reported Musculoskeletal: see HPI Skin: see HPI Past Pkpjlml-Fogwee-Nmgkgl Hx Past Med/Social Hx: Reviewed Nursing Past Med/Soc Hx Patient Social History 2nd Hand Smoke Exposure: No Recent Hopitalizations: No Seasonal Allergies Seasonal Allergies: No Past Medical History Surgeries: Yes Gallbladder Respiratory: No Cardiac: Yes Hypertension Neurological: No Genitourinary: No Gastrointestinal: Yes (Inguinal hernia) Musculoskeletal: No Endocrine: No Cancer: No Psychosocial: No Integumentary: No Blood Disorders: No Family Medical History Cancer, Other Conditions/Hx Physical Exam Vital Signs Vital Signs - First Documented 07/14/20 10:41 Temp 36.8 Pulse 68 Resp 16 B/P (MAP) 174/79 (110) Pulse Ox 99 O2 Delivery Room Air Capillary Refill : Height, Weight, BMI Height: '" Weight: lbs. oz. kg; 14.45 BMI Method: General Appearance: mild distress, thin Neck: full range of motion, supple Cardiovascular: normal peripheral pulses, regular rate, rhythm Respiratory: lungs clear, normal breath sounds Gastrointestinal: non tender, soft Shoulder: bone tenderness (right upper arm and shoulder area), limited ROM Elbow/Forearm: normal inspection Wrist: Yes normal inspection Hand: normal inspection Procedures/Interventions Date of ETT Placement: May 31, 2020 Time of ETT Placement: 1750 Progress/Results/Core Measures Results/Orders My Orders Orders - DON LEIVA DO Ed Iv/Invasive Line Start (07/14/20 10:45) Fentanyl Injection (Sublimaze Injection (07/14/20 10:45) Shoulder 2 View Right (07/14/20 10:45) Morphine Injection (Morphine Injection (07/14/20 11:15) Ct Extremity Upper Right Wo (07/14/20 11:39) Ct Thoracic Spine Wo (07/14/20 11:24) Vital Signs/I&O 07/14/20 07/14/20 10:41 14:32 Temp 36.8 36.8 Pulse 68 66 Resp 16 16 B/P (MAP) 174/79 (110) 155/92 (110) Pulse Ox 99 97 O2 Delivery Room Air Progress Progress Note : Time: 17:17 Progress Note Patient with comminuted scapular fracture. I did call and discuss with Dr. jensen who recommends patient placed in a sling. Patient has no other complaints beside her shoulder pain. I did prescribe her a small dose of hydrocodone's and she is to take one half every 6 hours. Patient should follow-up with her primary care provider to help arrange for outpatient management with an orthopedic surgeon of her choice. Patient is feeling much better and a sling and is asking to go home. Patient has no other complaints at this time. Departure Impression Primary Impression: Scapular fracture Qualified Codes: S42.111A - Displaced fracture of body of scapula, right shoulder, initial encounter for closed fracture Disposition: HOME, SELF-CARE Condition: Stable Departure-Patient Inst. Referrals: MYRTLE YOUNG MD (PCP/Family) Primary Care Physician Patient Instructions: Shoulder Blade Fracture (DC) Add. Discharge Instructions: Follow up with your primary care provider to arrange an appt with ortho specialist Dr Jensen or your field support specialist of choice Wear sling until cleared by orthopedic surgeon Scripts Hydrocodone/Acetaminophen (Hydrocodone-Acetamin 5-325 mg) 1 Each Tablet 0.5 EACH PO Q6H PRN for PAIN-BREAKTHROUGH, #10 TAB Prov: DON LEIVA DO 07/14/20 DON LEIVA DO Jul 14, 2020 10:45
[2020-07-14] MEDS ORDERED: morphine INJ 10 MG/ML 1ML (SYR OR VIAL) IVP STA (11:15)
--- NOTE | 2020-07-14 11:21 | Diagnostic Imaging Report ---
INDICATION: Fall with right shoulder pain. Time of exam: 1101 AM Two views of the right shoulder were obtained. The glenohumeral and acromioclavicular alignment are normal. There is an osseous density projected just inferior to the glenoid, suspicious for a fracture fragment. No other fractures are identified. Proximal humerus appears intact. IMPRESSION: Findings suggestive of a scapular fracture, as described. CT through the right shoulder would be useful for further evaluation. Dictated by: Dictated on workstation # [id number]
--- NOTE | 2020-07-14 12:25 | Diagnostic Imaging Report ---
PROCEDURE: CT right upper extremity without contrast. TECHNIQUE: Multiple contiguous axial images were obtained through the right upper extremity without the use of intravenous contrast. Sagittal and coronal reformations were then performed. Auto Exposure Controls were utilized during the CT exam to meet ALARA standards for radiation dose reduction. INDICATION: Fall with right shoulder pain and questionable scapular fracture. COMPARISON: Correlation is made with plain films of the right shoulder performed earlier the same day. FINDINGS: Glenohumeral and acromioclavicular alignment are normal. Distal clavicle is intact. The acromion and coracoid process are intact. The proximal humerus is intact. There is a comminuted fracture involving the scapula. This involves the scapular body from the mid third and extends laterally. The inferior fragment is displaced anteriorly. This does extend to just below the level of the glenoid, corresponding to the fracture fragment noted on plain film. The glenoid itself appears to be intact. Adjacent ribs appear to be intact. Pleural parenchymal scarring in the right lung apex is seen. Lungs are otherwise clear. IMPRESSION: Comminuted scapular fracture. Dictated by: Dictated on workstation # [id number]
[2020-07-14] MEDS ORDERED: ACHD5005 PO (13:11)
--- NOTE | 2020-07-14 13:26 | Diagnostic Imaging Report ---
PROCEDURE: CT thoracic spine without contrast. TECHNIQUE: Multiple axial computerized tomography images were obtained from the base of the thoracic spine to the vertex without intravenous contrast. Auto Exposure Controls were utilized during the CT exam to meet ALARA standards for radiation dose reduction. INDICATION: Scapular fracture. FINDINGS: There is normal thoracic kyphotic curvature. There is right convexity scoliotic curvature. Vertebral body heights are maintained. No acute compression fracture is identified. The paraspinous tissues are unremarkable. Recently seen right scapular fracture is again noted. IMPRESSION: Thoracic spondylosis and scoliosis. No acute fracture is detected. Dictated by: Dictated on workstation # [id number]
[2020-07-14 14:32] VITALS: BP 155/92
== END 2020-07-14 14:32 | disposition home or self-care (01) ==
LOC: EDUNIT# 10:41 → ER FS 10:42
DX: S42.191A Fracture of other part of scapula, right shoulder, initial encounter for closed fracture (principal); W01.0XXA Fall on same level from slipping, tripping and stumbling without subsequent striking against object, initial encounter
CPT/HCPCS: 72128; 73030; 73200